=== PATIENT | male | born 1965 | race Caucasian/White ===

== ENCOUNTER 2018-05-20 16:20 | Emergency (ER) | payer OTHER ==
[~2018-05-20] VITALS: Ht 180.3 cm; Wt 84.5 kg
[2018-05-20] MEDS ORDERED: dexamethasone sod phosphate 10mg/ml inj PO STA (17:42)
[2018-05-20] MEDS ORDERED: ALBU8.5H8 IH (17:43)
[2018-05-20 17:49] VITALS: BP 146/93
== END 2018-05-20 18:01 | disposition home or self-care (01) ==
LOC: ER 16:20
DX: R06.00 Dyspnea, unspecified (principal); R06.2 Wheezing; T44.995A Adverse effect of other drug primarily affecting the autonomic nervous system, initial encounter; Z88.1 Allergy status to other antibiotic agents; Z79.899 Other long term (current) drug therapy; Y92.89 Other specified places as the place of occurrence of the external cause
CPT/HCPCS: 93005; 99283; J1100